=== PATIENT | male | born 1970 | race Caucasian/White ===

== ENCOUNTER 2017-07-26 09:11 | Emergency (ER) | payer SELFPAY ==
[~2017-07-26] VITALS: Ht 175.3 cm; Wt 86.2 kg
[~2017-07-26 09:11] MED LIST: ALBU90OI6 INH; CYCL10 PO; DOXY100 PO; HYDACE5 PO; HYDACE5325 PO; IBUP600 PO; NAPR500 PO; OXYACE5T PO; SULTRIDS PO
[2017-07-26 10:44] LABS: BASOPHILS ABSOLUTE AUTO 0.08 K/mm3 (0.00-0.23); BASOPHILS PERCENT AUTO 0 % (0-2); EOSINOPHILS ABSOLUTE AUTO 0.58 K/mm3 (0.00-0.68); EOSINOPHILS PERCENT AUTO 3 % (0-6); IMMATURE GRAN PERCENT AUTO 1 % (0-1); LYMPHOCYTES PERCENT AUTO 10 % (21-46); MONOCYTES ABSOLUTE AUTO 1.81 K/mm3 (0.16-1.47); MONOCYTES PERCENT AUTO 10 % (4-13); Mean Corpuscular HGB 29.2 pg (26.0-34.0); Mean Corpuscular HGB Conc 33.3 g/dL (31.5-36.5); Mean Corpuscular Volume 88 fL (80-100); Mean Platelet Volume 10.1 fL (9.1-12.4); NEUTROPHILS ABSOLUTE AUTO 14.63 K/mm3 (1.96-9.15); NEUTROPHILS PERCENT AUTO 77 % (41-73); Platelet Count 394 K/mm3 (150-400); RDW Coefficient Variation 12.1 % (11.7-14.2); RDW Standard Deviation 39.3 fL (35.1-46.3); Red Blood Cell Count 4.45 M/mm3 (4.30-5.90)
[2017-07-26 11:01] LABS: Anion Gap 6 mmol/L (6-16); Blood Urea Nitrogen 9 mg/dL (8-24); Bun/Creatinine Ratio 10.7 (12.0-20.0); CO2, Blood 27 mmol/L (21-32); Calcium, Blood 8.8 mg/dL (8.5-10.1); Chloride, Blood 104 mmol/L (98-108); Creatinine, Blood 0.84 mg/dL (0.60-1.20); Glomerular Filtration Rate >60 (60-); Glucose, Blood 101 mg/dL (70-99); Potassium, Blood 3.9 mmol/L (3.5-5.5); Sodium, Blood 137 mmol/L (136-145)
== END 2017-07-26 13:23 | disposition short-term general hospital (02) ==
LOC: ER 09:11
PROVIDERS: Physician Assistant
DX: A41.9 Sepsis, unspecified organism (principal); M27.2 Inflammatory conditions of jaws; F17.200 Nicotine dependence, unspecified, uncomplicated
CPT/HCPCS: 36415; 70491; 80048; 83605; 85025; 87040; 87070; 87075; 87205; 96365; 96367; 96375; 99285; J2405; J2543; J3010; J7030; Q9967

== ENCOUNTER 2024-06-05 17:19 | Emergency (ER) | payer SELFPAY ==
[~2024-06-05] VITALS: Ht 175.3 cm; Wt 93.0 kg
[2024-06-05 17:51] VITALS: BP 143/83
[2024-06-05 18:13] LABS: BASOPHILS ABSOLUTE AUTO 0.05 K/mm3 (0.00-0.23); BASOPHILS PERCENT AUTO 1 % (0-2); EOSINOPHILS ABSOLUTE AUTO 0.49 K/mm3 (0.00-0.68); EOSINOPHILS PERCENT AUTO 5 % (0-6); Hematocrit 40.6 % (37.0-53.0); Hemoglobin 13.6 g/dL (13.5-17.5); IMMATURE GRAN ABSOLUTE AUTO 0.03 K/mm3 (0.00-0.10); IMMATURE GRAN PERCENT AUTO 0 % (0-1); LYMPHOCYTES ABSOLUTE AUTO 2.22 K/mm3 (0.84-5.20); LYMPHOCYTES PERCENT AUTO 25 % (21-46); MONOCYTES ABSOLUTE AUTO 1.02 K/mm3 (0.16-1.47); MONOCYTES PERCENT AUTO 11 % (4-13); Mean Corpuscular HGB 29.7 pg (26.0-34.0); Mean Corpuscular HGB Conc 33.5 g/dL (31.5-36.5); Mean Corpuscular Volume 89 fL (80-100); Mean Platelet Volume 10.5 fL (9.1-12.4); NEUTROPHILS PERCENT AUTO 58 % (41-73); Platelet Count 334 K/mm3 (150-400); RDW Coefficient Variation 12.3 % (11.7-14.2); RDW Standard Deviation 40.1 fL (35.1-46.3); Red Blood Cell Count 4.58 M/mm3 (4.30-5.90); White Blood Cell Count 9.01 K/mm3 (4.00-11.30)
[2024-06-05 18:39] LABS: Albumin, Blood 3.4 g/dL (3.4-5.0); Bilirubin, Total 0.2 mg/dL (0.1-1.0); Bun/Creatinine Ratio 17.6 (12.0-20.0); Calcium, Blood 8.6 mg/dL (8.5-10.1); Creatinine, Blood 0.85 mg/dL (0.60-1.20); Globulin, Blood 3.5 g/dL (2.2-4.0); Potassium, Blood 3.9 mmol/L (3.5-5.5); Total Protein, Blood 6.9 g/dL (6.4-8.2)
[2024-06-05] MEDS ORDERED: HYDROcodone 5-APAP 325 TAB PO ONE (19:10)
[2024-06-05] MEDS ORDERED: Trimethoprim/Sulfamethoxazole DS Tab PO ONE (19:10)
[2024-06-05] MEDS ORDERED: Bactrim Ds Tab1 EACH PO (19:14)
[2024-06-05] MEDS ORDERED: RX Prepack 6 Tabs Oxycodone 5mg UD ONE (19:15)
== END 2024-06-05 19:49 | disposition home or self-care (01) ==
LOC: ER 17:19
PROVIDERS: Physician Assistant
DX: S69.92XA Unspecified injury of left wrist, hand and finger(s), initial encounter (principal); S51.812A Laceration without foreign body of left forearm, initial encounter; X58.XXXA Exposure to other specified factors, initial encounter; F17.210 Nicotine dependence, cigarettes, uncomplicated
CPT/HCPCS: 73140; 80053; 85025; 99283-25; A9270

== ENCOUNTER 2024-06-10 09:45 | Day surgery (SDC) | payer SELFPAY ==
[~2024-06-10] VITALS: Ht 175.3 cm; Wt 90.2 kg
[~2024-06-10 09:45] MED LIST changes: +Bactrim Ds Tab1 EACH PO
[2024-06-10] MEDS ORDERED: NS 500 ML IV ONE (10:33)
[2024-06-10] MEDS ORDERED: CeFAZolin Sodium 2,000 MG VIAL ONE (11:50)
[2024-06-10] MEDS ORDERED: Midazolam HCl 1MG / ML 2ML Vial ONE (12:02)
[2024-06-10] MEDS ORDERED: FentaNYL Citrate 50 MCG/ML 2 ML Injection ONE (12:02)
[2024-06-10] MEDS ORDERED: propofoL 40 ML IV ONE (12:02)
[2024-06-10] MEDS ORDERED: Lidocaine HCl 1% 20 ML MDV INJ ONE ×2 (12:40)
--- NOTE | 2024-06-10 12:55 | NUR ---
06/10/24 1255 Romina Moeller 1/4 INCH RY DRAIN.
[2024-06-10] MEDS ORDERED: Ketorolac Tromethamine 30mg Vial ONE (13:01)
[2024-06-10 13:32] VITALS: BP 125/85
--- NOTE | 2024-06-10 13:34 | NUR ---
06/10/24 1334 Juanis Orozco D/C INSTRUCTIONS GIVEN TO PT & PT'S SIGNIFICANT OTHER AT THIS TIME BY MICAH CASTORENA. PT & PT'S SIGNIFICANT OTHER VERBALIZED UNDERSTANDING.
== END 2024-06-10 13:45 | disposition home or self-care (01) ==
LOC: ORSCSDS 09:45
PROVIDERS: Orthopaedic Surgery
PROC: 0X6P0Z0 Detachment at Left Index Finger, Complete, Open Approach (ICD-10-PCS; principal; 2024-06-10 11:15)
DX: I96 Gangrene, not elsewhere classified (principal); M86.142 Other acute osteomyelitis, left hand; F17.210 Nicotine dependence, cigarettes, uncomplicated
CPT/HCPCS: 88305; 88311; J0690; J1885; J2250; J2704; J3010; J7040